=== PATIENT | male | born 2000 | race Caucasian/White ===

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

== ENCOUNTER → 2020-04-15 | Emergency (ER) | payer BC, OTHER ==
[~2020-04-15] VITALS: Ht 167.6 cm; Wt 61.3 kg
[~2020-04-15] MED LIST: BACITRACIN ZINC TOPICAL OINT PACKET. TP ONE; DIPH,PERTUSS(ACELL),TET VAC/PF 0.5 ML SYRINGE. VAX IM ONE; LIDOCAINE 2% 20 ML VIAL. IJ ONE
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
[2020-04-15 19:35] VITALS: BP 110/67
== END ==
LOC: ER 18:20
DX: S51.812A Laceration without foreign body of left forearm, initial encounter (principal); W26.8XXA Contact with other sharp object(s), not elsewhere classified, initial encounter; Y93.89 Activity, other specified; Y92.89 Other specified places as the place of occurrence of the external cause; Y99.8 Other external cause status
CPT/HCPCS: 12001; 90471; 90715; 99283

== ENCOUNTER 2020-04-23 15:47 | Emergency (ER) | payer BC ==
[2020-04-15 19:35] VITALS: BP 110/67
== END 2020-04-23 16:00 | disposition home or self-care (01) ==
LOC: ER 15:47
DX: Z48.01 Encounter for change or removal of surgical wound dressing (principal); Z53.21 Procedure and treatment not carried out due to patient leaving prior to being seen by health care provider

== ENCOUNTER 2021-09-25 06:37 | Emergency (ER) | payer BC ==
[~2021-09-25] VITALS: Ht 175.3 cm; Wt 61.3 kg
--- NOTE | 2021-09-25 06:41 | PHYS DOC ---
Past History Past Medical History: No Pertinent History Past Surgical History: No Surgical History Smoking: Non-smoker Alcohol Use: None Drug Use: None Adult General [facility] HPI Patient is a 21 year old male who presents with injury to the right foot. Patient was on a trampoline yesterday and twisted the right foot. He comes to the ER today complaining of pain over the midfoot and the lateral aspect. No other injuries. Did not fall or strike head. Has been able to weight-bear but with discomfort. Review of Systems Review of Systems Constitutional: Denies fever HENT: Denies Respiratory: Denies Cardiovascular: No additional information : Denies Musculoskeletal: as documented in HPI Integument: Denies rash or skin lesions Neurologic: Denies All other systems were reviewed and found to be within normal limits, except as documented in this note. Allergies Allergies Allergies Coded Allergies Type Severity Reaction Last Updated Verified No Known Drug Allergies 04/16/20 No Physical Exam Physical Exam Constitutional: Well developed, well nourished, no acute distress, non-toxic appearance. HENT: Normocephalic, atraumatic Eyes: PERRLA, EOMI Neck: Normal range of motion Cardiovascular:Heart rate regular rhythm, no murmur Skin: Warm, dry, no erythema, no rash. Back: Normal ROM Extremities: No obvious deformity is present about the right foot. He has point tenderness over the mid foot on the dorsal aspect. No ecchymosis. Distal pulses are 2+. Sensation light touch intact distally. Neurologic: Alert and oriented X 3 Psychologic: Affect normal EKG EKG [] Radiology/Procedures Radiology/Procedures [] Heart Score C/O Chest Pain: No Risk Factors: Risk Factors: DM, Current or recent (<one month) smoker, HTN, HLP, family history of CAD, obesity. Risk Scores: Risk Factors: DM, Current or recent (<one month) smoker, HTN, HLP, family history of CAD, obesity. Course & Med Decision Making Course & Med Decision Making Pertinent Labs and Imaging studies reviewed. (See chart for details) ED summary: Patient seen in the emergency department for injury to the right foot. No acute findings on physical examination. Plain film imaging completed and initially read by ER doctor. No acute bony injury is appreciated. He is placed in a postop shoe for comfort and stable for discharge home. Recommend use Tylenol or Motrin as needed for pain. RICE therapy and follow-up with PCP. Rabia Disclaimer Rabia Disclaimer This electronic medical record was generated, in whole or in part, using a voice recognition dictation system. Departure Departure: Impression: Primary Impression: Contusion of foot, right Disposition: 01 HOME / SELF CARE / HOMELESS Condition: GOOD Referrals: PCP,NO (PCP) Patient Instructions: Contusion RE STARKS DO Sep 25, 2021 06:41
[2021-09-25 06:45] VITALS: BP 103/66
--- NOTE | 2021-09-25 07:14 | RAD ---
Three-view right foot radiographs 09/25/2021 CLINICAL HISTORY: Right foot pain. Trampoline injury. AP, oblique and lateral digital radiographs of the right foot were obtained. No fracture or dislocati on right foot is seen. No radiopaque foreign body is noted. IMPRESSION: No fracture or dislocation right foot is seen. Electronically signed by: Dio Ryan MD (09/25/2021 7:11 AM) [id number]
== END 2021-09-25 07:23 | disposition home or self-care (01) ==
LOC: ER 06:37
DX: S90.31XA Contusion of right foot, initial encounter (principal); X50.9XXA Other and unspecified overexertion or strenuous movements or postures, initial encounter; Y93.44 Activity, trampolining; Y92.89 Other specified places as the place of occurrence of the external cause; Y99.8 Other external cause status
CPT/HCPCS: 73630; 99283